=== PATIENT | female | born 1940 | race Caucasian/White ===

== ENCOUNTER → 2023-08-14 13:41 | Outpatient (REF) | payer MEDICARE, SELFPAY | LOC: SDSPAT 13:41 | PROVIDERS: ATTENDING PHYSICIAN Orthopaedic Surgery Hand Surgery; FAMILY PHYSICIAN Family Medicine | DX: S52.571A Other intraarticular fracture of lower end of right radius, initial encounter for closed fracture (principal) | CPT/HCPCS: 36415; 93005 ==